=== PATIENT | male | born 1945 | race American Indian/Alaskan Native ===

== ENCOUNTER 2020-05-14 07:57 | Day surgery (SDC) | payer MEDICARE ==
[2020-05-14] MEDS ORDERED: SODIUM CHLORIDE 0.9% 1000 ML 1,000 ML IV SCH (08:15)
--- NOTE | 2020-05-14 08:37 | Anesthesia Consultation ---
Anesthesia Consult and Med Hx Date of service: 05/14/20 - Airway Anesthetic Teeth Evaluation: Edentulous ROM Head & Neck: Adequate Mental/Hyoid Distance: Adequate Mallampati Class: Class II Intubation Access Assessment: Probably Good - Pre-Operative Health Status ASA Pre-Surgery Classification: ASA3 Proposed Anesthetic Plan: MAC - Pulmonary Hx Smoking: Yes (30 pack/year, quit in 1999) - Cardiovascular System Hx Hypertension: Yes Hx Coronary Artery Disease: No (no chest pain) Hx Heart Attack/AMI: No (resection of thoracic aortic aneurysm 2013) - Central Nervous System Hx Seizures: Yes (last in March 2020) - Endocrine Hx Hypothyroidism: Yes - Other Systems Hx Alcohol Use: Yes (quit 1999) Hx Substance Use: Yes (marijuana, cocaine (quit 1999))
--- NOTE | 2020-05-14 08:40 | Anesthesia Day of Surgery ---
Anesthesia Day of Surgery - Day of Surgery Patient Examined: Yes Patient H&P Reviewed: Yes Patient is NPO: Yes
[2020-05-14] MEDS ORDERED: LIDOCAINE MPF (2%) 20 MG/1 ML VIAL 5 ML ONE (08:44)
[2020-05-14] MEDS ORDERED: propofoL 200 MG/20 ML VIAL IV ONE (08:44)
--- NOTE | 2020-05-14 09:24 | Short Stay Summary ---
Short Stay Documentation Date of service: 05/14/20 Narrative H&P: The patient presents for diagnostic colonoscopy to evaluate history of recent diverticulitis and exclusion of neoplasia. Patient had LLQ pain and was treated empirically. - History Past Medical History: CAD, COPD, GERD, hypertension, seizures Past Surgical History: CABG, Other (Joint replacement surgery, [employer] shunt) Social history: , lives with family - Allergies and Medications Current Medications: Allergies Penicillins Adverse Reaction (Verified 05/14/20 08:09) Rash Active Medications Sodium Chloride (Nacl 0.9% 1000 Ml) 1,000 mls @ 75 mls/hr IV DIRECT KAYLI - Physical exam General appearance: no acute distress, well-nourished Integumentary: no rash, no growths, no abnormal pigmentation HEENT: Atraumatic, PERRLA, EOMI, Mucous membr. moist/pink Lungs: Clear to auscultation Breasts: deferred Heart: Regular rate, Normal S1, Normal S2, No murmurs Gastrointestinal: normoactive bowel sounds, no tenderness, no distended, no masses, no guarding, no organomegaly, no obese Male Genitourinary: deferred Rectal Exam: normal exam-external/orifice, normal rectal tone, no mass Extremities: no ischemia, pulses intact, pulses symmetrical, No edema, normal temperature, normal color, Full ROM Neurological: Normal gait, Normal speech, Strength at 5/5 X4 ext, Normal tone, Sensation intact, Cranial nerves 3-12 NL - Brief post op/procedure progress note Date of procedure: 05/14/20 Findings: see dictation Estimated blood loss: none Pathology: none Condition: stable - Disposition Condition at discharge: Good Disposition: DC-01 TO HOME OR SELFCARE - Discharge Diagnoses (1) Diverticulitis large intestine Status: Acute (2) LLQ abdominal pain Status: Acute Short Stay Discharge Plan Activity: other (no driving for 24 hours, restart all routine medications today including clopidogrel) Weight Bearing Status: Weight Bear as Tolerated Diet: regular Follow up with: CINDY GLORIA JR, MD [Primary Care Provider] - 7 Days
--- NOTE | 2020-05-14 09:28 | Operative Report ---
Operative Report Operative Report: Date of procedure: 05/14/2020 Preprocedure diagnosis: Recent suspected diverticulitis, rule out colon cancer. History of left lower quadrant pain. Post procedure diagnosis: Multiple left colon diverticula, mild inflammation in the sigmoid colon suggesting recent diverticulitis. Procedure: Colonoscopy to the cecum Endoscopist: Dr. Hanna Anesthesia: Monitored anesthesia care per anesthesia department Estimated blood loss: 0 Medications: Monitored anesthesia care. See separate report by anesthesia for details. After careful discussion of the nature and purpose of the procedure as well as details of the technique risks benefits and alternatives the patient gave consent. Please see recent history and physical from the office. The patient was placed in the left lateral decubitus position and medicated per anesthesia. A rectal exam was performed sphincter tone was normal there were no masses palpable. The iRidgen 570 scope was passed transanally and advanced under continuous direct vision without difficulty to the cecum. The colon was well prepared. The cecum was normal. The ascending colon was normal and on forward and retroflexed views. The transverse colon was normal. There were scattered diverticula throughout the descending and sigmoid colon and an area of erythema in a segment of the sigmoid colon suggesting recent mild diverticulitis. The rectum was normal on forward and retroflexed views. The procedure was well- tolerated overall and the patient was observed in recovery. Conclusions: Extensive left colon diverticulosis. Mild, resolving diverticulitis in the sigmoid colon. Plan: Continued observation. Consider an antibiotic course if the patient devel ops abdominal pain. Repeat colonoscopy as needed in light of age. Signed electronically: Orlando Hanna M.D.
[2020-05-14 10:22] VITALS: BP 156/87
--- NOTE | 2020-05-14 10:35 | Post Anesthesia Evaluation ---
- Post Anesthesia Evaluation Patient Participated: Yes Airway Patent: Yes Stable Respiratory Function: Yes Nausea/Vomiting: No Temp > 96.8F: Yes Pain Manageable: Yes Adequeate Hydration: Yes Anesthesia Complications: No Block Receding Appropriately: Not Applicable Patient on Ventilator: No
== END 2020-05-14 07:58 | disposition home or self-care (01) ==
LOC: GIO 07:57
PROVIDERS: ATTEND Internal Medicine Gastroenterology
DX: R10.32 Left lower quadrant pain (principal); K57.32 Diverticulitis of large intestine without perforation or abscess without bleeding; I10 Essential (primary) hypertension; G40.909 Epilepsy, unspecified, not intractable, without status epilepticus; E03.9 Hypothyroidism, unspecified; Z88.0 Allergy status to penicillin; Z87.891 Personal history of nicotine dependence; Z79.899 Other long term (current) drug therapy; Z72.89 Other problems related to lifestyle; Z98.890 Other specified postprocedural states
CPT/HCPCS: 45378; J2704; J7030